=== PATIENT | female | born 1965 | race Caucasian/White ===

== ENCOUNTER → 2024-05-27 14:24 | Outpatient (REF) | payer BC, SELFPAY | LOC: WDC 14:24 | PROVIDERS: ATTENDING PHYSICIAN Physician Assistant Medical | DX: Z12.31 Encounter for screening mammogram for malignant neoplasm of breast (principal) | CPT/HCPCS: 77063; 77067 ==

== ENCOUNTER → 2024-06-10 15:54 | Outpatient (REF) | payer BC, SELFPAY | LOC: RAD 15:54 | PROVIDERS: ATTENDING PHYSICIAN Physician Assistant Medical | DX: M79.662 Pain in left lower leg (principal) | CPT/HCPCS: 93971 ==